=== PATIENT | male | born 1980 | race Caucasian/White ===

== ENCOUNTER 2018-03-17 09:03 | Day surgery (SDC) | payer OTHER ==
[~2018-03-17] VITALS: Ht 185.4 cm; Wt 93.0 kg
--- NOTE | ~2018-03-17 | OP ---
PATIENT NAME: VICKY CARRILLO MEDICAL RECORD: [id number] LOCATION:[facility] ADMISSION DATE: SURGEON: LATIA ZUNIGA MD DATE OF OPERATION: 03/17/2018 SURGEON: Latia Zuniga MD ANESTHESIA: General anesthesia by Randall Samuels CRNA. DIAGNOSIS: Left spermatocele 2.2 cm. PROCEDURE: Excision of left spermatocele. FINDINGS: Left spermatocele. SPECIMENS: Left spermatocele. ESTIMATED BLOOD LOSS: None. CLINICAL HISTORY: This is a 37-year-old male, who noticed a tender, mobile lump in the left hemiscrotum. He noticed this while he was working in [place], [place] in December of 2017. He saw a urologist in [place]. An ultrasound showed a septated complex epididymal cyst 2.2 cm in size above the left testicle. The testicles are normal. The patient was treated with 1 month of doxycycline by the urologist in [place] and then the urologist proposed a left orchiectomy. The patient then left [place] and came to see me. He wants to go back to work in [place] in the fall and he wanted to have this resolved in [place] while he was still here. He has had no history of sexually transmitted infections. He wished to keep his left testicle and he did not want to have a left orchiectomy. The mass is separate from the testicle. It is cranial to the testicle. It is mobile and tender. The main risk of this procedure as I explained to the patient is actually a scrotal hematoma and possible scrotal abscess formation from a hematoma. He is not allergic to any medications. 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 DESCRIPTION OF PROCEDURE: The patient was given induction of general anesthesia in supine position. He was then shaved, prepped and draped. The mass was palpable as a mobile mass under the scrotal skin on the left side. A midline incision 3 cm long was made in the median rhaphe of the scrotum. This was then deepened using cautery. We went down to the dartos fascia with the cautery. The tunica vaginalis on the left hemiscrotum was opened up and the left testicle was everted out of the incision. The testicle was completely normal to palpation. We then pulled further down on the testicle and managed to get the large cystic structure out of the scrotal incision. It is multicystic in nature. A small incision was made in the superior part of the spermatocele and most of the spermatocele fluid was drained out using the Yankauer suction tip. We then circumscribed around the base of the spermatocele, where it attached to the posterior portion of the testicle. This excision was done using Metzenbaum scissors. Once the entire mass was circumscribed and completely removed, it was sent to pathology as a specimen. We cauterized any bleeding points that we could see. The posterior portion of the testicle was reapproximated using running 3-0 Vicryl. This reapproximated the tunica albuginea of the testicle to itself. At this point, the tunica vaginalis was closed using simple interrupted 3-0 Vicryl. The testicle was then placed back into its hemiscrotum. The dartos fascia was reapproximated using simple interrupted 3-0 Vicryl. The skin was OPERATIVE REPORT [id number] VICKY CARRILLO then closed using simple interrupted 4-0 Monocryl. The incision was infiltrated with 0.25% Marcaine containing epinephrine. Fluffs and mesh panties were then given to the patient, and the patient was awakened and brought to the recovery room. I will see the patient in followup next week to check on his healing. TRANSINT:[id number] Voice Confirmation ID: [id number] DOCUMENT ID: [id number] LATIA ZUNIGA MD at 1621 CC: [id number] DICTATION DATE: 03/17/18 153 SERVICE STATION HELPER: 03/17/18 1543 REG [facility] [address] [place] [address]
[2018-03-17 10:38] VITALS: BP 108/74; Ht 185.4 cm; Wt 93.0 kg
== END 2018-03-17 17:50 | disposition home or self-care (01) ==
LOC: D.OPS 09:03 → D.PAN 11:15 → D.OPS 11:30
DX: N43.41 Spermatocele of epididymis, single (principal); Z01.812 Encounter for preprocedural laboratory examination